=== PATIENT | female | born 1980 | race Caucasian/White ===

== ENCOUNTER 2021-02-28 21:04 | Inpatient (IN) ==
[2021-02-28] MEDS ORDERED: LACTATED RINGER'S 1,000 ML IV PRN (23:45)
[2021-02-28] MEDS ORDERED: OXYTOCIN 30 UNITS/500 ML BAG IV PRN (23:45)
[2021-02-28] MEDS ORDERED: ePHEDrine sulfate 50 MG/ML AMP ONE (23:59)
[2021-02-28] MEDS ORDERED: SODIUM CHLORIDE 0.9% INJ 10 ML VIAL ONE (23:59)
[2021-02-28] MEDS ORDERED: BUPIVACAINE 0.25% 30 ML VIAL ONE (23:59)
[2021-02-28] MEDS ORDERED: fentaNYL citrate 100 MCG/2 ML VIAL ONE (23:59)
[2021-03-01] MEDS ORDERED: fentaNYL 2MCG/ML ROPIVACAINE 1.25MG/ML 100 ML BAG EPI ONE
[2021-03-01 00:13] LABS: Hematocrit (blood only) 36.1 % (37-47); Hemoglobin 12.4 g/dL (12.0-16.0); Mean Corpuscular Hemoglobin 31.3 pg (25-34); Mean Corpuscular Hgb Conc 34.3 g/dL (32-36); Mean Corpuscular Volume 91.2 fL (80-100); Mean Platelet Volume 10.7 fL (7.4-10.4); Platelet Count 190 K/uL (130-400); RDW Coefficient of Variation 14.4 % (11.5-14.5); RDW Standard Deviation 48.4 fL (36.4-46.3); Red Blood Count 3.96 M/uL (4.2-5.4); White Blood Count 11.86 K/uL (4.8-10.8)
[2021-03-01] MEDS ORDERED: ePHEDrine sulfate 50 MG/ML AMP IV PRN (01:28)
[2021-03-01] MEDS ORDERED: fentaNYL 2MCG/ML ROPIVACAINE 1.25MG/ML 100 ML BAG EPI PRN (01:28)
[2021-03-01] MEDS ORDERED: diphenhydrAMINE 50 MG/ML VIAL IV PRN (01:28)
[2021-03-01] MEDS ORDERED: ONDANSETRON INJ 2 MG/ML 2 ML VIAL IV PRN (01:28)
[2021-03-01] MEDS ORDERED: NALBUPHINE HCL INJ 10 MG/ML AMP IV PRN (01:28)
[2021-03-01] MEDS ORDERED: NALOXONE HCL 1 MG in SODIUM CHLORIDE 0.9% 1000ML 1,000 ML IV PRN (01:28)
[2021-03-01] MEDS ORDERED: NALOXONE HCL 0.4 MG/1 ML VIAL/CARP IV PRN (01:28)
--- NOTE | 2021-03-01 01:28 | Anesthesiology Consultation ---
Date of Service March 01, 2021 Assessment & Plan Chart Review Chart Review: Patient NOT seen in Pre Admission Testing and Acceptable Risk for Labor Epidural Consults Requested none ASA ASA2 Proposed Anesthesia Anesthesia Type: Labor Epidural Risk / Benefits Reviewed With: PT / POA / Parent / Guardian, Accepts Plan and Informed Consent Obtained History Height/Weight Height: 5 ft 9 in Weight: 92.533 kg Allergies Allergy/AdvReac Type Severity Reaction Status Date / Time No Known Allergies Allergy Verified 02/28/21 21:36 Medications Home Medications Medication Instructions Recorded Confirmed Last Taken DOXYLAMINE SUCCINATE (SLEEP) 1 tab PO HS PRN #0 12/19/13 02/28/21 02/27/21 (UNISOM) ferrous sulfate 325 mg (65 mg 325 mg PO DAILY 02/28/21 02/28/21 02/28/21 iron) tablet (iron) prenat.vits,ahsan,jlx-ymxe-jawjs 1 tab PO DAILY 02/28/21 02/28/21 02/28/21 Active Medications Generic Name Dose Route Start Last Admin Trade Name Freq PRN Reason Stop Dose Admin Lactated Ringer's 1,000 mls @ 125 mls/hr 02/28/21 23:45 02/28/21 23:58 Lr IV 03/02/21 23:44 999 mls/hr .Q8H PRN Administration L&D Protocol Protocol Past Medical History Medical History (Updated 02/28/21 @ 21:23 by Karen Young RN) Ectopic Exercise / Class Metabolic Activity II 4-5 Yardwork/Stairs/Walk up hill Past Anesthesia History No Hx of Anesthesia Complications and No Family Hx of Anesthesia Complications History of PONV No Hx of PONV and No Hx of Motion Sickness Social History Smoking Status: Never smoker Hx Alcohol Use: No Hx Substance Use: No Physical Exam Vital Signs Last Vital Signs Temp 36.7 C 03/01/21 00:44 Pulse 94 H 03/01/21 01:26 Resp 18 03/01/21 00:44 BP 103/63 03/01/21 01:26 Pulse Ox 96 03/01/21 01:22 ENMT Mouth: no dentition abnormality Thyromental Distance: > or= 3.5 Finger Breadths Mallampati Class: II Neck normal visual inspection Respiratory normal respiratory effort Auscultation: lungs clear to auscultation bilaterally Cardiovascular Rate/Rhythm: regular rate and regular rhythm Psychiatric Orientation: alert Testing Laboratory Results 03/01/21 00:04
[2021-03-01] MEDS ORDERED: miSOPROStoL 200 MCG TAB ONE (05:40)
[2021-03-01] MEDS ORDERED: METHYLERGONOVINE MALEATE 0.2 MG/ML AMP ONE (05:53)
[2021-03-01] MEDS ORDERED: METHYLERGONOVINE MALEATE 0.2 MG/ML AMP IM ONE (06:02)
[2021-03-01] MEDS ORDERED: ACETAMINOPHEN 325 MG TAB PO PRN (06:02)
[2021-03-01] MEDS ORDERED: miSOPROStoL 200 MCG TAB PR ONE (06:02)
[2021-03-01] MEDS ORDERED: bisacodyL 10 MG SUPP PR PRN (06:02)
[2021-03-01] MEDS ORDERED: SUPERCREAM 0.870% 15 GM JAR EXT PRN (06:02)
[2021-03-01] MEDS ORDERED: OXYTOCIN 30 UNITS/500 ML BAG IV PRN (06:02)
[2021-03-01] MEDS ORDERED: HYDROCORTISONE ACETATE 25 MG SUPP PR PRN (06:02)
[2021-03-01] MEDS ORDERED: DIPHTHERIA/TETANUS/PERTUSSIS 0.5 ML SYR/VIAL IM ONE (06:02)
[2021-03-01] MEDS ORDERED: BENZOCAINE 20% AER SPR 82.5 GM CAN EXT PRN (06:02)
--- NOTE | 2021-03-01 08:09 | Anesthesia Procedure Note ---
Date of Service March 01, 2021 Anesthesia Post Epidural Note Vital Signs Vital Signs: Temp Pulse Resp BP Pulse Ox 37.4 C 81 20 113/61 94 03/01/21 07:00 03/01/21 07:53 03/01/21 07:00 03/01/21 07:53 03/01/21 05:48 Notes Mental Status: alert / awake / arousable Nausea / Vomiting: adequately controlled Pain: adequately controlled Airway Patency, RR, SpO2: stable & adequate BP & HR: stable & adequate Hydration State: stable & adequate Neuraxial Anesthesia: was administered and sensory block is resolving Anesthetic Complications: no major complications apparent Epidural: Removed without complications and With tip intact
[2021-03-01] MEDS: IBUPROFEN 600 MG TAB PO PRN ×2 (09:31→22:30)
[2021-03-01] MEDS: DOCUSATE SODIUM 100 MG CAP PO SCH ×2 (09:32→20:34)
[2021-03-01] MEDS: PRENATAL VITAMIN 1 TAB PO SCH (09:32)
[2021-03-02 05:58] LABS: Hematocrit (blood only) 33.3 % (37-47); Mean Corpuscular Hemoglobin 30.8 pg (25-34); Mean Corpuscular Volume 93.3 fL (80-100); Mean Platelet Volume 10.5 fL (7.4-10.4); Platelet Count 186 K/uL (130-400); RDW Coefficient of Variation 14.5 % (11.5-14.5); RDW Standard Deviation 49.5 fL (36.4-46.3); Red Blood Count 3.57 M/uL (4.2-5.4); White Blood Count 11.51 K/uL (4.8-10.8)
[2021-03-02] MEDS: PRENATAL VITAMIN 1 TAB PO SCH (08:38)
[2021-03-02] MEDS: DOCUSATE SODIUM 100 MG CAP PO SCH (08:38)
[2021-03-02] MEDS: IBUPROFEN 600 MG TAB PO PRN (08:38)
--- NOTE | 2021-03-02 08:44 | Labor Progress Brief Note ---
Date of Service March 02, 2021 Subjective Review of Systems All systems reviewed & are unremarkable except as noted in HPI & below Assessment & Plan (1) Normal course: Plan: PPD #1 pt doing well No complaints Admission and Anticipated Discharge Date Admission Date: February 28, 2021 Physical Exam Constitutional: WD/WN, vitals as above well developed and well nourished Eyes: PERRL, conjunctivae normal, anicteric sclerae Neck: trachea midline, no thyromegaly Respiratory: normal respiratory effort, lungs clear to auscultation Auscultation: no crackles, no rales and no wheezes Cardiovascular: RRR, no murmur, no edema Gastrointestinal (Abdomen): normal bowel sounds, soft, nontender, no hepatosplenomegaly Uterus is below umbilicus Musculoskeletal: no cyanosis or clubbing, extremities motor strength 5/5 Skin: no rashes, warm and dry Neurologic: patellar DTR's 2+ bilat, sensation intact Psychiatric: A+Ox3, euthymic affect Genitourinary: normal external appearance Results & Data ([facility]) Vital Signs (Past 12 Hours) Vital Signs Temp Pulse Resp BP Pulse Ox 03/02/21 03:40 36.5 C 73 16 117/76 97 03/01/21 23:59 36.9 C 69 18 118/68 96
--- NOTE | 2021-03-02 09:01 | Delivery Summary ---
DATE OF SERVICE: The patient delivered a live female in left occiput anterior presentation. There was no nucha l cord. Infant was delivered and placed on mother's abdomen. Delayed cord clamp was performed after 1 minute. Cord blood was obtained. Placenta was spontaneously delivered. Inspection of the placen ta appeared grossly normal looking with what may appear to be an accessory lobe. Placenta is sent to pathology for pathological analysis. Inspection of the perineum shows a second-degree midline laceration, which was repaired in layers wit h 2-0 and 3-0 Vicryl. There was a right periurethral tear, which was repaired with 3-0 Vicryl as wel l. Rectal exam post-repair showed good sphincter tone. There were no sutures in the rectum. Estimated blood loss was 450 mL. The patient is sent to recovery in stable condition as well as baby. Baby's weight and Apgars are in the pediatric record. All instruments are removed from the vagina including sponges, needles, and retractors. The patient and baby are in stable condition. Job ID: [id number]
[2021-03-02] MEDS ORDERED: bisacodyL 5 MG TABEC PO SCH (20:00)
== END 2021-03-02 13:03 | disposition home or self-care (01) | DRG 807 ==
LOC: OPB 21:04 → 4S1 21:07 → 4S2 03-01 09:30